=== PATIENT | female | born 1930 | race Caucasian/White ===

== ENCOUNTER 2017-04-18 15:50 | Inpatient (IN) | payer OTHER, MEDICAID ==
[~2017-04-18] VITALS: Ht 160 cm; Wt 77.2 kg
[~2017-04-18 15:50] MED LIST: ASPI81CH43 PO; CARV3.1240 PO; FLUT250M9 PO; FUR20T PO; ISO60SRT PO; METF-371 PO; POTA10TA51 PO; RAM10T PO; ROPI1TAB2 PO; SIMV-8 PO; THEO1CAP3 PO; TRAM50TA2 PO
[2017-04-18] MEDS ORDERED: SODIUM CHLORIDE 0.9% 1,000 ML IV ONE ×2 (16:56→17:09)
[2017-04-18 17:22] LABS: Urine Bilirubin Negative (Negative); Urine Blood Negative /uL (Negative); Urine Color Yellow (Yellow); Urine Glucose Normal (Normal); Urine Ketone Negative (Negative); Urine Nitrite Negative (Negative); Urine RBC <1 /hpf (0 - 4); Urine Squamous Epithelial Cell FEW /hpf (<5); Urine Urobilinogen Normal (Negative)
[2017-04-18 17:26] LABS: Basophils # (auto) 0.1 uL; Basophils % (auto) 0.8 % (0.0-2.0); Eosinophils # (auto) 0.3 uL; Hematocrit 27.4 % (36.0-46.0); Hemoglobin 8.9 g/dL (12.2-16.2); Lymphocytes # (auto) 0.8 uL; Lymphocytes % (auto) 12.2 % (10.0-50.0); Mean Corpuscular Hemoglobin 28.1 pg (28.0-32.0); Mean Corpuscular Hgb Conc. 32.4 g/dL (32.0-36.0); Mean Corpuscular Volume 86.8 fL (80.0-100.0); Mean Platelet Volume 7.3 fL (6.9-10.8); Monocytes # (auto) 0.9 uL; Monocytes % (auto) 13.4 % (0.0-12.0); Neutrophils # (auto) 4.8 uL; Neutrophils % (auto) 69.6 % (37.0-80.0); Nucleated Red Blood Cells % 0.1 %; Platelet Count (auto) 200 10^3/uL (140-450); White Blood Cell 6.8 10^3/uL (4.4-10.8)
[2017-04-18 17:43] LABS: Albumin 2.6 g/dL (3.4-5.0); Anion Gap 3 (5-15); Blood Urea Nitrogen 24 mg/dL (7-18); Calcium 9.6 mg/dL (8.5-10.1); Carbon Dioxide 35 mmol/L (21-32); Chloride 100 mmol/L (98-107); Glucose 87 mg/dL (74-106); Magnesium 2.2 mg/dL (1.6-2.6); Potassium 4.2 mmol/L (3.5-5.1); Sodium 138 mmol/L (136-145)
[2017-04-18 17:45] LABS: Aspartate Aminotransferase 24 U/L (15-37); BUN/Creatinine Ratio 18.2; GFR African American 49 mL/min; GFR Non-African American 41 mL/min
[2017-04-18 17:50] LABS: Alkaline Phosphatase 50 U/L (45-117); B-Type Natriuretic Peptide 90.77 pg/mL (0-100); Bilirubin, Total 0.4 mg/dL (0.2-1.0); Total Protein 6.7 g/dL (6.4-8.2)
[2017-04-18 18:03] LABS: Partial Thromboplastin Time 28.2 sec (22.64-33.71); Prothrombin Time 10.9 sec (9.37-12.3)
[2017-04-18 18:05] LABS: Temperature: 23.1 C (20.0-25.0)
[2017-04-18] MEDS ORDERED: PROMETHAZINE HCL 25 MG/ML 1ML IV PRN (19:45)
[2017-04-18] MEDS ORDERED: traMADol HCL 50 MG TAB PO PRN (19:45)
[2017-04-18] MEDS ORDERED: TEMAZEPAM 15 MG CAP PO PRN (19:45)
[2017-04-18] MEDS ORDERED: NITROGLYCERIN 0.4 MG SL TAB SL PRN (19:45)
[2017-04-18] MEDS ORDERED: MORPHINE SULF INJ 2 MG/ML SYRINGE 1ML IV PRN ×2 (19:45)
[2017-04-18] MEDS ORDERED: ALBUTEROL SULF 2.5 MG/0.5ML(0.5%) NEB SOLN NEB PRN (19:45)
[2017-04-18] MEDS ORDERED: ACETAMINOPHEN 500 MG TAB PO PRN (19:45)
[2017-04-18] MEDS ORDERED: LACTULOSE 20Gm/30ML SOLN PO PRN (19:45)
[2017-04-18] MEDS ORDERED: LORazepam 0.5 MG TAB PO PRN (19:45)
[2017-04-18] MEDS ORDERED: HYDROcodone-ACET 5/325MG TAB PO PRN (19:45)
[2017-04-18] MEDS: ENOXAPARIN SOD 40 MG/0.4 ML SYRINGE SC SCH (20:03)
[2017-04-18] MEDS: ASPirin 81 mg TAB PO SCH (20:04)
[2017-04-18 21:08] VITALS: BP 165/66
[2017-04-18] MEDS: THEOPHYLLINE 300 MG PO SCH (22:00)
[2017-04-18] MEDS: ROPINIROLE HYDROCHLORIDE 1 MG PO SCH (22:00)
[2017-04-18] MEDS: SODIUM CHLOR 0.9% PF (SALINE LOCK) 10ML VIAL IV SCH (22:00)
[2017-04-18 23:00] VITALS: BP 150/56
[2017-04-18 23:49] VITALS: BP 150/56
[2017-04-18] MEDS: ATORVASTATIN 20 MG TAB PO SCH (23:49)
[2017-04-18] MEDS: DOXYCYCLINE HYC 100MG/250ML 250 ML IV SCH (23:49)
[2017-04-18] MEDS: CARVEDILOL 3.125 MG TAB PO SCH (23:49)
[2017-04-19] MEDS: SULFAMETHOX W/TRIMETH(800/160MG) DS TAB PO SCH ×3 (00:03→22:06)
[2017-04-19] MEDS: RAMIPRIL 10 MG CAP PO SCH ×3 (00:11→22:06)
[2017-04-19] MEDS: ISOSORBIDE MONONITRATE 60 MG TAB PO SCH ×2 (00:11→10:15)
[2017-04-19] MEDS: methylPREDNISolone SOD SUCC 40 MG/ML VL IV SCH ×4 (00:12→18:50)
[2017-04-19] MEDS: ALBUTEROL SULF 2.5 MG/0.5ML(0.5%) NEB SOLN NEB SCH ×5 (01:12→23:53)
[2017-04-19] MEDS: IPRATROPIUM BROM 0.5 MG/2.5ML INH SOL NEB SCH ×5 (01:12→23:53)
[2017-04-19] MEDS: BUDESONIDE (INHALATION) 0.5 MG/2 ML NEB NEB SCH ×3 (01:12→18:20)
[2017-04-19 05:30] VITALS: BP 129/52
[2017-04-19] MEDS: SODIUM CHLOR 0.9% PF (SALINE LOCK) 10ML VIAL IV SCH ×3 (06:00→21:47)
[2017-04-19] MEDS: ROPINIROLE HYDROCHLORIDE 1 MG PO SCH ×3 (06:00→22:15)
[2017-04-19] MEDS: DOXYCYCLINE HYC 100MG/250ML 250 ML IV SCH ×2 (07:44→21:47)
[2017-04-19 08:00] VITALS: BP 129/48
[2017-04-19] MEDS: POTASSIUM CHL 10 Meq TABLET PO SCH (10:12)
[2017-04-19] MEDS: CARVEDILOL 3.125 MG TAB PO SCH ×2 (10:13→21:59)
[2017-04-19] MEDS: FUROSEMIDE 20 MG TAB PO SCH (10:14)
[2017-04-19] MEDS: ASPirin 81 mg TAB PO SCH (10:15)
[2017-04-19] MEDS: THEOPHYLLINE 300 MG PO SCH ×2 (10:18→22:15)
[2017-04-19 13:00] VITALS: BP 141/52
[2017-04-19 16:56] VITALS: BP 141/49
[2017-04-19] MEDS: ENOXAPARIN SOD 40 MG/0.4 ML SYRINGE SC SCH (21:47)
[2017-04-19 22:00] VITALS: BP 138/74
[2017-04-19] MEDS: ATORVASTATIN 20 MG TAB PO SCH (22:06)
[2017-04-20] MEDS: methylPREDNISolone SOD SUCC 40 MG/ML VL IV SCH ×4 (00:45→18:46)
[2017-04-20 05:00] VITALS: BP 119/51
[2017-04-20] MEDS: ROPINIROLE HYDROCHLORIDE 1 MG PO SCH ×3 (06:00→21:50)
[2017-04-20] MEDS: SODIUM CHLOR 0.9% PF (SALINE LOCK) 10ML VIAL IV SCH ×3 (06:12→21:51)
[2017-04-20] MEDS: IPRATROPIUM BROM 0.5 MG/2.5ML INH SOL NEB SCH ×3 (06:39→19:48)
[2017-04-20] MEDS: ALBUTEROL SULF 2.5 MG/0.5ML(0.5%) NEB SOLN NEB SCH ×3 (06:39→19:48)
[2017-04-20] MEDS: BUDESONIDE (INHALATION) 0.5 MG/2 ML NEB NEB SCH ×2 (06:39→19:48)
[2017-04-20 08:00] VITALS: BP 135/55
[2017-04-20] MEDS: DOXYCYCLINE HYC 100MG/250ML 250 ML IV SCH ×2 (08:41→23:08)
[2017-04-20] MEDS: ASPirin 81 mg TAB PO SCH (10:00)
[2017-04-20] MEDS: CARVEDILOL 3.125 MG TAB PO SCH ×2 (10:00→21:49)
[2017-04-20] MEDS: POTASSIUM CHL 10 Meq TABLET PO SCH (11:02)
[2017-04-20] MEDS: SULFAMETHOX W/TRIMETH(800/160MG) DS TAB PO SCH ×2 (11:03→21:49)
[2017-04-20] MEDS: ISOSORBIDE MONONITRATE 60 MG TAB PO SCH (11:04)
[2017-04-20] MEDS: RAMIPRIL 10 MG CAP PO SCH ×2 (11:04→21:48)
[2017-04-20] MEDS: FUROSEMIDE 20 MG TAB PO SCH (11:05)
[2017-04-20 12:00] VITALS: BP 139/44
[2017-04-20] MEDS: THEOPHYLLINE 300 MG PO SCH ×2 (16:11→21:51)
[2017-04-20 17:00] VITALS: BP 132/59
[2017-04-20] MEDS: ENOXAPARIN SOD 40 MG/0.4 ML SYRINGE SC SCH (21:47)
[2017-04-20] MEDS: ATORVASTATIN 20 MG TAB PO SCH (21:48)
[2017-04-20 22:00] VITALS: BP 129/45
[2017-04-21] MEDS: methylPREDNISolone SOD SUCC 40 MG/ML VL IV SCH ×3 (00:05→13:48)
[2017-04-21] MEDS: IPRATROPIUM BROM 0.5 MG/2.5ML INH SOL NEB SCH ×4 (00:43→19:12)
[2017-04-21] MEDS: ALBUTEROL SULF 2.5 MG/0.5ML(0.5%) NEB SOLN NEB SCH ×4 (00:43→19:12)
[2017-04-21 05:00] VITALS: BP 126/56
[2017-04-21] MEDS: SODIUM CHLOR 0.9% PF (SALINE LOCK) 10ML VIAL IV SCH ×3 (05:07→22:14)
[2017-04-21] MEDS: ROPINIROLE HYDROCHLORIDE 1 MG PO SCH ×3 (06:24→21:34)
[2017-04-21] MEDS: BUDESONIDE (INHALATION) 0.5 MG/2 ML NEB NEB SCH ×2 (07:48→19:12)
[2017-04-21 09:00] VITALS: BP 144/91
[2017-04-21] MEDS: DOXYCYCLINE HYC 100MG/250ML 250 ML IV SCH (09:14)
[2017-04-21] MEDS: ASPirin 81 mg TAB PO SCH (12:17)
[2017-04-21] MEDS: THEOPHYLLINE 300 MG PO SCH ×2 (12:18→21:32)
[2017-04-21] MEDS: SULFAMETHOX W/TRIMETH(800/160MG) DS TAB PO SCH (12:18)
[2017-04-21] MEDS: RAMIPRIL 10 MG CAP PO SCH ×2 (12:18→21:33)
[2017-04-21] MEDS: POTASSIUM CHL 10 Meq TABLET PO SCH (12:19)
[2017-04-21] MEDS: ISOSORBIDE MONONITRATE 60 MG TAB PO SCH (12:19)
[2017-04-21] MEDS: CARVEDILOL 3.125 MG TAB PO SCH (12:19)
[2017-04-21] MEDS: FUROSEMIDE 20 MG TAB PO SCH (12:20)
[2017-04-21 13:00] VITALS: BP 132/53
[2017-04-21 16:49] VITALS: BP 150/67
[2017-04-21] MEDS: ENOXAPARIN SOD 40 MG/0.4 ML SYRINGE SC SCH (20:11)
[2017-04-21] MEDS: ATORVASTATIN 20 MG TAB PO SCH (21:32)
[2017-04-21 22:00] VITALS: BP 123/57
[2017-04-21] MEDS ORDERED: DOXYCYCLINE 100 MG TAB/CAP PO SCH (22:00)
[2017-04-22] MEDS: IPRATROPIUM BROM 0.5 MG/2.5ML INH SOL NEB SCH ×3 (00:06→12:22)
[2017-04-22] MEDS: ALBUTEROL SULF 2.5 MG/0.5ML(0.5%) NEB SOLN NEB SCH ×3 (00:07→12:22)
[2017-04-22 01:44] VITALS: BP 123/57
[2017-04-22 05:00] VITALS: BP 137/48
[2017-04-22] MEDS: ROPINIROLE HYDROCHLORIDE 1 MG PO SCH (05:26)
[2017-04-22] MEDS: SODIUM CHLOR 0.9% PF (SALINE LOCK) 10ML VIAL IV SCH (05:26)
[2017-04-22 07:25] LABS: Basophils # (auto) 0 uL; Basophils % (auto) 0.1 % (0.0-2.0); Eosinophils # (auto) 0 uL; Hematocrit 28.3 % (36.0-46.0); Hemoglobin 9.1 g/dL (12.2-16.2); Lymphocytes # (auto) 1.2 uL; Lymphocytes % (auto) 11.1 % (10.0-50.0); Mean Corpuscular Hemoglobin 27.4 pg (28.0-32.0); Mean Corpuscular Volume 85.4 fL (80.0-100.0); Mean Platelet Volume 7.4 fL (6.9-10.8); Monocytes # (auto) 0.9 uL; Monocytes % (auto) 8.5 % (0.0-12.0); Neutrophils # (auto) 8.8 uL; Neutrophils % (auto) 80.3 % (37.0-80.0); Nucleated Red Blood Cells % 0.1 %; Platelet Count (auto) 265 10^3/uL (140-450); Red Cell Distribution Width 17.6 % (11.8-14.3)
[2017-04-22 07:34] LABS: BUN/Creatinine Ratio 30.1; Calcium 9.2 mg/dL (8.5-10.1)
[2017-04-22] MEDS: BUDESONIDE (INHALATION) 0.5 MG/2 ML NEB NEB SCH (08:10)
[2017-04-22 09:00] VITALS: BP 146/66
[2017-04-22] MEDS ORDERED: predniSONE 20 MG TAB PO SCH (10:00)
[2017-04-22] MEDS: THEOPHYLLINE 300 MG PO SCH (10:32)
[2017-04-22] MEDS: ASPirin 81 mg TAB PO SCH (10:32)
[2017-04-22] MEDS: RAMIPRIL 10 MG CAP PO SCH (10:33)
[2017-04-22] MEDS: ISOSORBIDE MONONITRATE 60 MG TAB PO SCH (10:33)
[2017-04-22 11:01] VITALS: BP 137/48
== END 2017-04-22 13:00 | disposition home or self-care (01) | DRG 682 ==
LOC: EDBD 15:50 → ER 15:52 → TELE 15:53 → TELE-WESTW 21:45
PROVIDERS: ADMIT Internal Medicine; ATTEND Internal Medicine
DX: N17.9 Acute kidney failure, unspecified (principal); J96.20 Acute and chronic respiratory failure, unspecified whether with hypoxia or hypercapnia; E44.0 Moderate protein-calorie malnutrition; I50.32 Chronic diastolic (congestive) heart failure; I13.0 Hypertensive heart and chronic kidney disease with heart failure and stage 1 through stage 4 chronic kidney disease, or unspecified chronic kidney disease; J44.1 Chronic obstructive pulmonary disease with (acute) exacerbation; L03.115 Cellulitis of right lower limb; L03.116 Cellulitis of left lower limb; R44.3 Hallucinations, unspecified; E11.21 Type 2 diabetes mellitus with diabetic nephropathy; N18.3 Chronic kidney disease, stage 3 (moderate); D63.8 Anemia in other chronic diseases classified elsewhere; E11.22 Type 2 diabetes mellitus with diabetic chronic kidney disease; E78.5 Hyperlipidemia, unspecified; I25.10 Atherosclerotic heart disease of native coronary artery without angina pectoris; E66.9 Obesity, unspecified; I87.2 Venous insufficiency (chronic) (peripheral); R09.89 Other specified symptoms and signs involving the circulatory and respiratory systems; R79.89 Other specified abnormal findings of blood chemistry; T38.0X5A Adverse effect of glucocorticoids and synthetic analogues, initial encounter; I70.0 Atherosclerosis of aorta; M19.90 Unspecified osteoarthritis, unspecified site; Z83.3 Family history of diabetes mellitus; Z90.49 Acquired absence of other specified parts of digestive tract; Z68.30 Body mass index [BMI] 30.0-30.9, adult; Z82.49 Family history of ischemic heart disease and other diseases of the circulatory system; Z88.8 Allergy status to other drugs, medicaments and biological substances; Z99.81 Dependence on supplemental oxygen
CPT/HCPCS: 36415; 71020; 80048; 80053; 81001; 83735; 83880; 84443; 84484; 85025; 85610; 85730; 87400; 93005; 93970; 94640; 94761; 96360; J3490

== ENCOUNTER 2017-05-28 07:29 | Inpatient (IN) | payer OTHER, MEDICAID ==
[~2017-05-28] VITALS: Ht 162.6 cm; Wt 74.6 kg
[~2017-05-28 07:29] MED LIST changes: -CARV3.1240 PO; -FUR20T PO; -POTA10TA51 PO
[2017-05-28] MEDS ORDERED: SODIUM CHLORIDE 0.9% 1,000 ML IV ONE (09:30)
[2017-05-28] MEDS ORDERED: cefTRIAXone 1GM/10ml IVPUSH 10 ML IV ONE ×2 (09:30→09:47)
[2017-05-28 10:23] LABS: Urine Bacteria NONE SEEN /hpf (None Seen); Urine Blood Negative /uL (Negative); Urine Mucus FEW (None Seen); Urine Specific Gravity 1.011 (1.001-1.035); Urine WBC 1 /hpf (0 - 5)
[2017-05-28 10:29] LABS: Basophils # (auto) 0.1 uL; Basophils % (auto) 0.8 % (0.0-2.0); Eosinophils # (auto) 0.2 uL; Eosinophils % (auto) 2.2 % (0.0-7.0); Hematocrit 30.5 % (36.0-46.0); Lymphocytes # (auto) 1.6 uL; Lymphocytes % (auto) 19.7 % (10.0-50.0); Mean Corpuscular Hemoglobin 28.5 pg (28.0-32.0); Mean Corpuscular Hgb Conc. 32.9 g/dL (32.0-36.0); Mean Corpuscular Volume 86.5 fL (80.0-100.0); Monocytes # (auto) 0.6 uL; Monocytes % (auto) 7.2 % (0.0-12.0); Neutrophils # (auto) 5.7 uL; Neutrophils % (auto) 70.1 % (37.0-80.0); Platelet Count (auto) 248 10^3/uL (140-450); Red Blood Cells 3.52 10^6/uL (4.0-5.20); Red Cell Distribution Width 18.2 % (11.8-14.3); White Blood Cell 8.1 10^3/uL (4.4-10.8)
[2017-05-28] MEDS ORDERED: FUROSEMIDE 40 MG/4 ML VIAL ONE (10:56)
[2017-05-28] MEDS ORDERED: SPIRONOLACTONE 25 MG TAB ONE (10:56)
[2017-05-28] MEDS ORDERED: SPIRONOLACTONE 25 MG TAB PO ONE (11:00)
[2017-05-28] MEDS ORDERED: FUROSEMIDE 40 MG/4 ML VIAL IV ONE (11:00)
[2017-05-28 11:01] LABS: Potassium 3.9 mmol/L (3.5-5.1)
[2017-05-28 11:02] LABS: Albumin 3.4 g/dL (3.4-5.0); BUN/Creatinine Ratio 21.4; Bilirubin, Total 0.3 mg/dL (0.2-1.0); Calcium 9.2 mg/dL (8.5-10.1); Magnesium 2.2 mg/dL (1.6-2.6); Total Protein 6.8 g/dL (6.4-8.2)
[2017-05-28] MEDS ORDERED: LORazepam 0.5 MG TAB PO PRN (12:45)
[2017-05-28] MEDS ORDERED: MORPHINE SULF INJ 2 MG/ML SYRINGE 1ML IV PRN (12:45)
[2017-05-28] MEDS ORDERED: HYDROcodone-ACET 5/325MG TAB PO PRN (12:45)
[2017-05-28] MEDS ORDERED: ACETAMINOPHEN 500 MG TAB PO PRN (12:45)
[2017-05-28] MEDS ORDERED: TEMAZEPAM 15 MG CAP PO PRN (12:45)
[2017-05-28] MEDS ORDERED: ALBUTEROL SULF 2.5 MG/0.5ML(0.5%) NEB SOLN NEB PRN (12:45)
[2017-05-28] MEDS ORDERED: PROMETHAZINE HCL 25 MG/ML 1ML IV PRN (12:45)
[2017-05-28] MEDS ORDERED: NITROGLYCERIN 0.4 MG SL TAB SL PRN (12:45)
[2017-05-28] MEDS ORDERED: LACTULOSE 20Gm/30ML SOLN PO PRN (12:45)
[2017-05-28] MEDS ORDERED: OSELTAMIVIR 75 MG CAP PO ONE (13:00)
[2017-05-28] MEDS ORDERED: LEVOFLOXACIN 500MG 100 ML IV ONE (13:15)
[2017-05-28 13:52] VITALS: BP 104/54
[2017-05-28] MEDS: CLINDAMYCIN 600MG IV 50 ML IV SCH ×2 (14:00→22:12)
[2017-05-28] MEDS: ALBUTEROL SULF 2.5 MG/0.5ML(0.5%) NEB SOLN NEB SCH (18:18)
[2017-05-28] MEDS: IPRATROPIUM BROM 0.5 MG/2.5ML INH SOL NEB SCH (18:19)
[2017-05-28 21:28] VITALS: BP 140/54
[2017-05-28] MEDS ORDERED: OSELTAMIVIR 75 MG CAP PO SCH (22:00)
[2017-05-28] MEDS: OSELTAMIVIR 30 MG CAP PO SCH (22:00)
[2017-05-28] MEDS: methylPREDNISolone SOD SUCC 40 MG/ML VL IV SCH (22:02)
[2017-05-28] MEDS: MORPHINE SULF INJ 2 MG/ML SYRINGE 1ML IV PRN (22:03)
[2017-05-28] MEDS: CARVEDILOL 3.125 MG TAB PO SCH (22:24)
[2017-05-29] MEDS: ALBUTEROL SULF 2.5 MG/0.5ML(0.5%) NEB SOLN NEB SCH ×4 (00:25→18:48)
[2017-05-29] MEDS: IPRATROPIUM BROM 0.5 MG/2.5ML INH SOL NEB SCH ×4 (00:25→18:48)
[2017-05-29] MEDS: MORPHINE SULF INJ 2 MG/ML SYRINGE 1ML IV PRN (05:21)
[2017-05-29 05:22] VITALS: BP 145/52
[2017-05-29] MEDS: CLINDAMYCIN 600MG IV 50 ML IV SCH ×2 (05:28→15:03)
[2017-05-29] MEDS: methylPREDNISolone SOD SUCC 40 MG/ML VL IV SCH ×4 (05:31→18:51)
[2017-05-29 06:06] LABS: Basophils # (auto) 0 uL; Basophils % (auto) 0.6 % (0.0-2.0); Eosinophils # (auto) 0 uL; Eosinophils % (auto) 0.1 % (0.0-7.0); Hematocrit 32.1 % (36.0-46.0); Hemoglobin 10.7 g/dL (12.2-16.2); Lymphocytes # (auto) 0.5 uL; Lymphocytes % (auto) 8.1 % (10.0-50.0); Mean Corpuscular Hemoglobin 28.7 pg (28.0-32.0); Mean Corpuscular Hgb Conc. 33.2 g/dL (32.0-36.0); Mean Corpuscular Volume 86.5 fL (80.0-100.0); Monocytes # (auto) 0.1 uL; Monocytes % (auto) 1.1 % (0.0-12.0); Neutrophils # (auto) 5.3 uL; Neutrophils % (auto) 90.1 % (37.0-80.0); Platelet Count (auto) 245 10^3/uL (140-450); Red Blood Cells 3.72 10^6/uL (4.0-5.20); Red Cell Distribution Width 18.6 % (11.8-14.3); White Blood Cell 5.9 10^3/uL (4.4-10.8)
[2017-05-29 06:13] LABS: Potassium 4.4 mmol/L (3.5-5.1)
[2017-05-29 06:20] LABS: Albumin 3.3 g/dL (3.4-5.0); BUN/Creatinine Ratio 20.5; Calcium 9.4 mg/dL (8.5-10.1)
[2017-05-29 06:37] LABS: Bilirubin, Total 0.3 mg/dL (0.2-1.0); Total Protein 6.8 g/dL (6.4-8.2)
[2017-05-29 09:00] VITALS: BP 142/46
[2017-05-29] MEDS ORDERED: LEVOFLOXACIN 250MG 50 ML IV SCH (10:00)
[2017-05-29] MEDS: OSELTAMIVIR 30 MG CAP PO SCH (10:00)
[2017-05-29] MEDS ORDERED: ENOXAPARIN SOD 40 MG/0.4 ML SYRINGE SC SCH (10:00)
[2017-05-29] MEDS: FUROSEMIDE 40 MG/4 ML VIAL IV SCH (11:00)
[2017-05-29] MEDS: ENOXAPARIN SOD 30 MG/0.3 ML SYRINGE SC SCH (11:01)
[2017-05-29] MEDS: NITROGLYCERIN 0.2MG/HR TOPICAL PATCH TD SCH (11:02)
[2017-05-29] MEDS: CARVEDILOL 3.125 MG TAB PO SCH (11:03)
[2017-05-29] MEDS: POTASSIUM CHL 20 Meq TABLET PO SCH (11:03)
[2017-05-29] MEDS: ASPirin 81 mg TAB PO SCH (11:04)
[2017-05-29] MEDS: PANTOPRAZOLE 40 MG TAB PO SCH (11:04)
[2017-05-29] MEDS: ENALAPRIL MALEATE 2.5 MG TAB PO SCH (11:04)
[2017-05-29 13:00] VITALS: BP 148/52
[2017-05-29 17:25] VITALS: BP 141/43
[2017-05-29] MEDS ORDERED: ALLO300T2 PO (18:25)
[2017-05-29] MEDS ORDERED: FERR-20 PO (18:25)
[2017-05-29] MEDS ORDERED: CARV3.1240 PO (18:25)
[2017-05-29] MEDS ORDERED: FURO20TA3 PO (18:25)
[2017-05-29] MEDS ORDERED: GLIM1TAB2 PO (18:25)
[2017-05-29 22:53] VITALS: BP 138/59
[2017-05-30] MEDS: DOXYCYCLINE 100 MG TAB/CAP PO SCH ×2 (00:26→10:45)
[2017-05-30] MEDS: CARVEDILOL 3.125 MG TAB PO SCH ×2 (00:26→10:45)
[2017-05-30] MEDS: methylPREDNISolone SOD SUCC 40 MG/ML VL IV SCH ×3 (00:27→12:18)
[2017-05-30] MEDS: IPRATROPIUM BROM 0.5 MG/2.5ML INH SOL NEB SCH ×3 (00:28→11:50)
[2017-05-30] MEDS: ALBUTEROL SULF 2.5 MG/0.5ML(0.5%) NEB SOLN NEB SCH ×3 (00:28→11:50)
[2017-05-30] MEDS: MORPHINE SULF INJ 2 MG/ML SYRINGE 1ML IV PRN (04:08)
[2017-05-30 05:46] VITALS: BP 145/73
[2017-05-30] MEDS ORDERED: cefTRIAXone 1GM/10ml IVPUSH 10 ML IV SCH (09:00)
[2017-05-30 09:09] VITALS: BP 153/45
[2017-05-30] MEDS: ASPirin 81 mg TAB PO SCH (10:00)
[2017-05-30] MEDS: ENALAPRIL MALEATE 2.5 MG TAB PO SCH (10:44)
[2017-05-30] MEDS: PANTOPRAZOLE 40 MG TAB PO SCH (10:45)
[2017-05-30] MEDS: FUROSEMIDE 40 MG/4 ML VIAL IV SCH (10:46)
[2017-05-30] MEDS: POTASSIUM CHL 20 Meq TABLET PO SCH (10:46)
[2017-05-30] MEDS: ENOXAPARIN SOD 30 MG/0.3 ML SYRINGE SC SCH (10:47)
[2017-05-30] MEDS: NITROGLYCERIN 0.2MG/HR TOPICAL PATCH TD SCH (10:47)
[2017-05-30 13:00] VITALS: BP 155/41
[2017-05-30] MEDS ORDERED: DOX100T PO (14:06)
[2017-05-30] MEDS ORDERED: PRE5T PO (14:06)
[2017-05-30] MEDS ORDERED: ALB5IS NEB (14:06)
[2017-05-30 14:39] VITALS: BP 153/45
== END 2017-05-30 16:55 | disposition home or self-care (01) | DRG 291 ==
LOC: ER 07:29 → EDBD 07:29 → TELE 07:30 → TELE-WESTW 18:41
PROVIDERS: ADMIT Internal Medicine; ATTEND Internal Medicine
DX: I13.0 Hypertensive heart and chronic kidney disease with heart failure and stage 1 through stage 4 chronic kidney disease, or unspecified chronic kidney disease (principal); J96.21 Acute and chronic respiratory failure with hypoxia; E11.21 Type 2 diabetes mellitus with diabetic nephropathy; I50.33 Acute on chronic diastolic (congestive) heart failure; J44.1 Chronic obstructive pulmonary disease with (acute) exacerbation; L03.115 Cellulitis of right lower limb; L03.116 Cellulitis of left lower limb; K59.00 Constipation, unspecified; F41.9 Anxiety disorder, unspecified; N18.3 Chronic kidney disease, stage 3 (moderate); G47.00 Insomnia, unspecified; E11.22 Type 2 diabetes mellitus with diabetic chronic kidney disease; D63.8 Anemia in other chronic diseases classified elsewhere; E78.5 Hyperlipidemia, unspecified; I25.10 Atherosclerotic heart disease of native coronary artery without angina pectoris; M19.90 Unspecified osteoarthritis, unspecified site; Z82.49 Family history of ischemic heart disease and other diseases of the circulatory system; Z83.3 Family history of diabetes mellitus; Z90.49 Acquired absence of other specified parts of digestive tract; Z88.6 Allergy status to analgesic agent; Z79.82 Long term (current) use of aspirin; Z79.899 Other long term (current) drug therapy
CPT/HCPCS: 36415; 71045; 71046; 80053; 81001; 82550; 82962; 83735; 83880; 84484; 85025; 85379; 85652; 86141; 87081; 87400; 93005; 93306; 93971; 94640; 94761; 96374; 96375; G9035; J1956; J3490

== ENCOUNTER 2017-07-08 16:45 | Inpatient (IN) | payer OTHER, MEDICAID ==
[~2017-07-08] VITALS: Ht 160 cm; Wt 75.8 kg
[~2017-07-08 16:45] MED LIST changes: +ALB5IS NEB; +ALLO300T2 PO; +CARV3.1240 PO; +DOX100T PO; +FERR-20 PO; +FURO20TA3 PO; +GLIM1TAB2 PO; +PRE5T PO
[2017-07-08] MEDS ORDERED: DEXTROSE (50%) 50ML SYRG IV ONE ×3 (17:15→22:00)
[2017-07-08 18:03] LABS: Eosinophils # (auto) 0.1 uL; Hematocrit 19.9 % (36.0-46.0); Lymphocytes # (auto) 0.5 uL; Mean Corpuscular Hemoglobin 28.4 pg (28.0-32.0); Monocytes # (auto) 0.3 uL; Neutrophils # (auto) 4.5 uL; White Blood Cell 5.4 10^3/uL (4.4-10.8)
[2017-07-08 18:11] LABS: Basophils % (auto) 0.5 % (0.0-2.0); Eosinophils % (auto) 1.6 % (0.0-7.0); Lymphocytes % (auto) 8.9 % (10.0-50.0); Monocytes % (auto) 4.8 % (0.0-12.0); Neutrophils % (auto) 84.2 % (37.0-80.0)
[2017-07-08 18:12] LABS: Basophils # (auto) 0 uL; Red Blood Cells 2.31 10^6/uL (4.0-5.20)
[2017-07-08 18:14] LABS: Mean Corpuscular Hgb Conc. 32.9 g/dL (32.0-36.0); Mean Corpuscular Volume 86.3 fL (80.0-100.0); Platelet Count (auto) 184 10^3/uL (140-450); Red Cell Distribution Width 18.5 % (11.8-14.3)
[2017-07-08 18:16] LABS: Hemoglobin 6.6 g/dL (12.2-16.2)
[2017-07-08 18:28] LABS: Albumin 2.7 g/dL (3.4-5.0); BUN/Creatinine Ratio 38.6; Calcium 9.4 mg/dL (8.5-10.1); Magnesium 2.1 mg/dL (1.6-2.6); Potassium 4.1 mmol/L (3.5-5.1)
[2017-07-08 18:43] LABS: Bilirubin, Total 0.3 mg/dL (0.2-1.0); Total Protein 5.8 g/dL (6.4-8.2)
[2017-07-08] MEDS ORDERED: DEXTROSE 50% SYRINGE 50 ML IV ONE ×2 (19:04→19:11)
[2017-07-08] MEDS ORDERED: NTG 0.1MG/HR TOPICAL PATCH TD ONE (19:45)
[2017-07-08] MEDS ORDERED: MORPHINE SULFATE 4 MG/ML SYR/VIAL IV ONE (19:45)
[2017-07-08] MEDS ORDERED: ONDANSETRON HCL 4 MG/2 ML VIAL IV ONE (19:45)
[2017-07-08] MEDS ORDERED: DEXTROSE (25%) 10 ML SYRG IV ONE (19:45)
[2017-07-08] MEDS ORDERED: ASPirin 81 mg TAB PO ONE (19:45)
[2017-07-08] MEDS ORDERED: DEXTROSE 10% 1,000 ML IV ONE ×2 (21:41→22:00)
[2017-07-08] MEDS ORDERED: VANCOMYCIN 1GM/250ML 250 ML IV ONE (23:15)
[2017-07-08] MEDS ORDERED: cefTRIAXone 1GM/10ml IVPUSH 10 ML IV ONE (23:15)
[2017-07-08] MEDS: DEXTROSE 10% 1,000 ML IV SCH (23:40)
[2017-07-08] MEDS ORDERED: DEXTROSE 10% 1,000 ML IV SCH (23:45)
[2017-07-09] VITALS (7 sets, daily range): BP systolic 105–148; BP diastolic 39–59
[2017-07-09] MEDS ORDERED: MORPHINE SULFATE 4 MG/ML SYR/VIAL IV PRN (01:00)
[2017-07-09] MEDS ORDERED: ALBUTEROL SULF 2.5 MG/0.5ML(0.5%) NEB SOLN NEB PRN (01:00)
[2017-07-09] MEDS ORDERED: DEXTROSE (50%) 50ML SYRG IV PRN (01:00)
[2017-07-09] MEDS ORDERED: NITROGLYCERIN 0.4 MG SL TAB SL PRN (01:00)
[2017-07-09] MEDS ORDERED: ACETAMINOPHEN 325 MG TAB PO PRN (01:00)
[2017-07-09] MEDS ORDERED: ONDANSETRON HCL 4 MG/2 ML VIAL IV PRN (01:00)
[2017-07-09] MEDS ORDERED: GLUCAGON HYDROCHLORIDE (RDNA) 1 MG VIAL IV ONE (01:30)
[2017-07-09] MEDS ORDERED: GLUCAGON HYDROCHLORIDE (RDNA) 1 MG VIAL ONE (01:40)
[2017-07-09] MEDS: ACCU-CHEK COMFORT CURVE STRIP VI SCH ×5 (04:00→20:00)
[2017-07-09] MEDS: InsuLIN REG 1unit/0.01ml Soln (100units/ml) SC SCH ×5 (05:15→20:00)
[2017-07-09] MEDS ORDERED: FUROSEMIDE 20 MG TAB PO SCH (06:00)
[2017-07-09] MEDS: CLINDAMYCIN 600MG IV 50 ML IV SCH ×3 (06:00→22:04)
[2017-07-09 08:32] LABS: Hematocrit 25.3 % (36.0-46.0); Hemoglobin 8.5 g/dL (12.2-16.2)
[2017-07-09 09:53] LABS: Urine Bacteria NONE SEEN /hpf (None Seen); Urine Blood Negative /uL (Negative); Urine Mucus FEW (None Seen); Urine Specific Gravity 1.007 (1.001-1.035); Urine WBC 1 /hpf (0 - 5)
[2017-07-09] MEDS ORDERED: ASPirin 81 mg TAB PO SCH (10:00)
[2017-07-09] MEDS ORDERED: CARVEDILOL 3.125 MG TAB PO SCH (10:00)
[2017-07-09] MEDS ORDERED: RAMIPRIL 10 MG CAP PO SCH (10:00)
[2017-07-09] MEDS ORDERED: predniSONE 5 MG TAB PO SCH (10:00)
[2017-07-09 10:01] LABS: Protein, Urine 8.1 mg/dL (0.0-11.9)
[2017-07-09] MEDS: PANTOPRAZOLE 40 MG TAB PO SCH (10:35)
[2017-07-09] MEDS: ENOXAPARIN SOD 30 MG/0.3 ML SYRINGE SC SCH (10:35)
[2017-07-09] MEDS: ISOSORBIDE MONONITRATE 60 MG TAB PO SCH (10:35)
[2017-07-09] MEDS ORDERED: LEVALBUTEROL HYDROCHLORIDE 0.63 MG/3 ML NEB SOLN NEB PRN (11:30)
[2017-07-09] MEDS ORDERED: LEVALBUTEROL INH PRN (12:00)
[2017-07-09] MEDS: DEXTROSE 10% 1,000 ML IV SCH (14:25)
[2017-07-09] MEDS: HYDROcodone-ACET 5/325MG TAB PO PRN (15:58)
[2017-07-09 19:55] LABS: % Iron Saturation 10.7 % (15-50)
[2017-07-09] MEDS: IPRATROPIUM BROM 0.5 MG/2.5ML INH SOL NEB PRN (20:25)
[2017-07-09] MEDS: TEMAZEPAM 15 MG CAP PO PRN (20:56)
[2017-07-09] MEDS ORDERED: PATIENTS OWN MEDICATION (simvastatin 20 MG) PO SCH (22:00)
[2017-07-09] MEDS: cefTRIAXone 1GM/10ml IVPUSH 10 ML IV SCH (22:04)
[2017-07-09] MEDS: ATORVASTATIN 20 MG TAB PO SCH (22:11)
[2017-07-09] MEDS: CARVEDILOL 3.125 MG TAB PO SCH (22:11)
[2017-07-10] MEDS: ACCU-CHEK COMFORT CURVE STRIP VI SCH ×6 (00:12→21:45)
[2017-07-10] MEDS: DEXTROSE 10% 1,000 ML IV SCH ×2 (00:12→10:58)
[2017-07-10] MEDS: InsuLIN REG 1unit/0.01ml Soln (100units/ml) SC SCH ×6 (03:41→20:00)
[2017-07-10 05:20] LABS: Basophils # (auto) 0 uL; Basophils % (auto) 0.4 % (0.0-2.0); Eosinophils # (auto) 0.2 uL; Eosinophils % (auto) 3.2 % (0.0-7.0); Hematocrit 26.6 % (36.0-46.0); Hemoglobin 8.9 g/dL (12.2-16.2); Lymphocytes # (auto) 1.3 uL; Lymphocytes % (auto) 21.8 % (10.0-50.0); Mean Corpuscular Hemoglobin 29.1 pg (28.0-32.0); Mean Corpuscular Hgb Conc. 33.4 g/dL (32.0-36.0); Mean Corpuscular Volume 86.9 fL (80.0-100.0); Monocytes # (auto) 0.9 uL; Monocytes % (auto) 14.2 % (0.0-12.0); Neutrophils # (auto) 3.7 uL; Neutrophils % (auto) 60.4 % (37.0-80.0); Nucleated Red Blood Cells % 0.1 %; Platelet Count (auto) 209 10^3/uL (140-450); Red Blood Cells 3.06 10^6/uL (4.0-5.20); Red Cell Distribution Width 17.2 % (11.8-14.3); White Blood Cell 6.1 10^3/uL (4.4-10.8)
[2017-07-10] MEDS: CLINDAMYCIN 600MG IV 50 ML IV SCH ×3 (06:03→21:33)
[2017-07-10 06:06] LABS: Albumin 2.6 g/dL (3.4-5.0); BUN/Creatinine Ratio 37.2; Bilirubin, Total 0.4 mg/dL (0.2-1.0); Magnesium 2.2 mg/dL (1.6-2.6); Phosphorus 4.2 mg/dL (2.5-4.90); Potassium 5.1 mmol/L (3.5-5.1); Uric Acid 5.1 mg/dL (2.6-6.0)
[2017-07-10] MEDS: IPRATROPIUM BROM 0.5 MG/2.5ML INH SOL NEB PRN ×2 (06:53→13:41)
[2017-07-10] MEDS ORDERED: predniSONE 5 MG TAB PO SCH (10:00)
[2017-07-10] MEDS: CARVEDILOL 3.125 MG TAB PO SCH ×2 (10:56→21:34)
[2017-07-10] MEDS: ISOSORBIDE MONONITRATE 60 MG TAB PO SCH (10:56)
[2017-07-10] MEDS: ASPirin 81 mg TAB PO SCH (10:56)
[2017-07-10] MEDS: PANTOPRAZOLE 40 MG TAB PO SCH (10:57)
[2017-07-10] MEDS: ENOXAPARIN SOD 30 MG/0.3 ML SYRINGE SC SCH (10:57)
[2017-07-10] MEDS ORDERED: DEXTROSE 10% 1,000 ML IV SCH (11:30)
[2017-07-10] MEDS: HYDROcodone-ACET 5/325MG TAB PO PRN ×2 (12:39→22:28)
[2017-07-10] MEDS ORDERED: DEXTROSE (50%) 50ML SYRG IV PRN (15:15)
[2017-07-10] MEDS ORDERED: methylPREDNISolone SOD SUCC 40 MG/ML VL IV ONE (15:30)
[2017-07-10 16:23] VITALS: BP_SYST 101; BP_SYST 115; BP_DIAS 62; BP_DIAS 78
[2017-07-10 16:59] VITALS: BP 115/42
[2017-07-10 21:29] VITALS: BP 113/44
[2017-07-10] MEDS: cefTRIAXone 1GM/10ml IVPUSH 10 ML IV SCH (21:33)
[2017-07-10] MEDS: ATORVASTATIN 20 MG TAB PO SCH (21:34)
[2017-07-10] MEDS: methylPREDNISolone SOD SUCC 40 MG/ML VL IV SCH (21:35)
[2017-07-10] MEDS: TEMAZEPAM 15 MG CAP PO PRN (22:49)
[2017-07-11] MEDS: ACCU-CHEK COMFORT CURVE STRIP VI SCH ×6 (02:00→21:45)
[2017-07-11] MEDS: InsuLIN REG 1unit/0.01ml Soln (100units/ml) SC SCH ×6 (03:48→20:34)
[2017-07-11 05:00] VITALS: BP 157/63
[2017-07-11] MEDS: CLINDAMYCIN 600MG IV 50 ML IV SCH (05:28)
[2017-07-11 07:27] LABS: Hematocrit 23.5 % (36.0-46.0)
[2017-07-11 07:56] LABS: BUN/Creatinine Ratio 43.7; Calcium 8.6 mg/dL (8.5-10.1); Potassium 5.2 mmol/L (3.5-5.1)
[2017-07-11 08:24] VITALS: BP 116/43
[2017-07-11] MEDS: methylPREDNISolone SOD SUCC 40 MG/ML VL IV SCH ×2 (09:13→21:44)
[2017-07-11] MEDS: ENOXAPARIN SOD 30 MG/0.3 ML SYRINGE SC SCH (09:14)
[2017-07-11] MEDS: ASPirin 81 mg TAB PO SCH (09:17)
[2017-07-11] MEDS: CARVEDILOL 3.125 MG TAB PO SCH ×2 (09:17→21:48)
[2017-07-11] MEDS: PANTOPRAZOLE 40 MG TAB PO SCH (09:17)
[2017-07-11] MEDS: ISOSORBIDE MONONITRATE 60 MG TAB PO SCH (09:18)
[2017-07-11] MEDS ORDERED: FLORASTOR (S. BOULARDII) 250 MG CAP PO ONE (10:38)
[2017-07-11] MEDS: HYDROcodone-ACET 5/325MG TAB PO PRN ×2 (10:42→22:50)
[2017-07-11] MEDS ORDERED: PRAMIPEXOLE DIHYDROCHLORIDE MO 0.25 MG TAB PO ONE (10:45)
[2017-07-11 12:53] VITALS: BP 97/36
[2017-07-11] MEDS ORDERED: MORPHINE SULFATE 4 MG/ML SYR/VIAL IV ONE (13:00)
[2017-07-11] MEDS: PRAMIPEXOLE DIHYDROCHLORIDE MO 0.25 MG TAB PO SCH ×2 (14:31→21:45)
[2017-07-11] MEDS: CLINDAMYCIN 300MG IV 50 ML IV SCH ×2 (14:32→21:44)
[2017-07-11 17:44] VITALS: BP 116/43
[2017-07-11] MEDS: cefTRIAXone 1GM/10ml IVPUSH 10 ML IV SCH (21:44)
[2017-07-11] MEDS: ATORVASTATIN 20 MG TAB PO SCH (21:44)
[2017-07-11 22:00] VITALS: BP 101/56
[2017-07-11] MEDS ORDERED: PRAMIPEXOLE DIHYDROCHLORIDE MO 0.25 MG TAB PO SCH (22:00)
[2017-07-11] MEDS: IPRATROPIUM BROM 0.5 MG/2.5ML INH SOL NEB PRN (22:43)
[2017-07-11] MEDS: LEVALBUTEROL HYDROCHLORIDE 0.63 MG/3 ML NEB SOLN NEB PRN (22:43)
[2017-07-12] VITALS (7 sets, daily range): BP systolic 123–161; BP diastolic 43–89
[2017-07-12] MEDS: InsuLIN REG 1unit/0.01ml Soln (100units/ml) SC SCH ×5 (00:13→22:24)
[2017-07-12] MEDS: TEMAZEPAM 15 MG CAP PO PRN ×2 (00:18→22:09)
[2017-07-12] MEDS: ACCU-CHEK COMFORT CURVE STRIP VI SCH ×4 (02:11→22:17)
[2017-07-12] MEDS: CLINDAMYCIN 300MG IV 50 ML IV SCH (05:58)
[2017-07-12] MEDS: PRAMIPEXOLE DIHYDROCHLORIDE MO 0.25 MG TAB PO SCH ×3 (05:58→22:09)
[2017-07-12] MEDS: IPRATROPIUM BROM 0.5 MG/2.5ML INH SOL NEB PRN ×2 (06:45→19:41)
[2017-07-12 07:15] LABS: Hematocrit 23.6 % (36.0-46.0)
[2017-07-12 07:32] LABS: BUN/Creatinine Ratio 46.1; Calcium 8.4 mg/dL (8.5-10.1)
[2017-07-12] MEDS: LEVALBUTEROL HYDROCHLORIDE 0.63 MG/3 ML NEB SOLN NEB PRN ×2 (10:00→19:42)
[2017-07-12] MEDS ORDERED: FLORASTOR (S. BOULARDII) 250 MG CAP PO SCH (10:00)
[2017-07-12] MEDS: methylPREDNISolone SOD SUCC 40 MG/ML VL IV SCH ×2 (10:00→22:08)
[2017-07-12] MEDS: PANTOPRAZOLE 40 MG TAB PO SCH (10:44)
[2017-07-12] MEDS: ASPirin 81 mg TAB PO SCH (10:45)
[2017-07-12] MEDS: CARVEDILOL 3.125 MG TAB PO SCH ×2 (10:45→22:08)
[2017-07-12] MEDS: ISOSORBIDE MONONITRATE 60 MG TAB PO SCH (10:46)
[2017-07-12] MEDS: ENOXAPARIN SOD 30 MG/0.3 ML SYRINGE SC SCH (10:47)
[2017-07-12] MEDS ORDERED: DEXTROSE (50%) 50ML SYRG IV PRN (12:30)
[2017-07-12] MEDS ORDERED: ALBUTEROL SULF 2.5 MG/0.5ML(0.5%) NEB SOLN NEB PRN (12:30)
[2017-07-12] MEDS: CLINDAMYCIN HCL 150 MG CAP PO SCH ×2 (16:00→22:08)
[2017-07-12] MEDS: DEXTROSE 10% 1,000 ML IV SCH ×2 (16:01→23:16)
[2017-07-12] MEDS: HYDROcodone-ACET 5/325MG TAB PO PRN (20:05)
[2017-07-12] MEDS: ATORVASTATIN 20 MG TAB PO SCH (22:08)
[2017-07-13 05:00] VITALS: BP 155/69
[2017-07-13] MEDS: CLINDAMYCIN HCL 150 MG CAP PO SCH (05:45)
[2017-07-13] MEDS: PRAMIPEXOLE DIHYDROCHLORIDE MO 0.25 MG TAB PO SCH (05:45)
[2017-07-13] MEDS: InsuLIN REG 1unit/0.01ml Soln (100units/ml) SC SCH (05:52)
[2017-07-13] MEDS: ACCU-CHEK COMFORT CURVE STRIP VI SCH (05:53)
[2017-07-13] MEDS: IPRATROPIUM BROM 0.5 MG/2.5ML INH SOL NEB PRN (08:35)
[2017-07-13 09:00] VITALS: BP 156/54
[2017-07-13 13:00] VITALS: BP 149/58
[2017-07-13] MEDS: HYDROcodone-ACET 5/325MG TAB PO PRN (13:55)
[2017-07-13] MEDS: MORPHINE SULFATE 4 MG/ML SYR/VIAL IV PRN ×2 (14:41→22:46)
[2017-07-13 16:21] VITALS: BP 153/66
[2017-07-13 22:49] VITALS: BP 143/57
[2017-07-14] MEDS: MORPHINE SULFATE 4 MG/ML SYR/VIAL IV PRN ×4 (01:10→18:32)
[2017-07-14] MEDS: LORazepam 2MG/ML-1ML VIAL IV PRN ×2 (02:22→16:09)
[2017-07-14 05:34] VITALS: BP 165/71
[2017-07-14 07:27] LABS: Albumin 2.5 g/dL (3.4-5.0); Calcium 8.9 mg/dL (8.5-10.1); Potassium 5.1 mmol/L (3.5-5.1)
[2017-07-14 07:30] VITALS: BP 112/57
[2017-07-14 07:30] LABS: BUN/Creatinine Ratio 45.8
[2017-07-14 07:33] LABS: Bilirubin, Total 0.3 mg/dL (0.2-1.0); Phosphorus 2.4 mg/dL (2.5-4.90); Total Protein 5.7 g/dL (6.4-8.2)
[2017-07-14 08:53] VITALS: BP 112/47
[2017-07-14 12:54] VITALS: BP 148/71
[2017-07-14 16:48] VITALS: BP 157/64
[2017-07-14 17:58] VITALS: BP 144/57
== END 2017-07-14 18:30 | disposition hospice, home (50) | DRG 682 ==
LOC: ER 16:45 → EDBD 16:45 → TELE 16:46 → TELE-EAST 07-10 16:26 → EAST 07-12 17:39
PROVIDERS: ADMIT Nurse Practitioner; ATTEND Internal Medicine
PROC: 30233N1 Transfusion of Nonautologous Red Blood Cells into Peripheral Vein, Percutaneous Approach (ICD-10-PCS; principal; 2017-07-09)
DX: N17.0 Acute kidney failure with tubular necrosis (principal); I21.A1 Myocardial infarction type 2; J96.21 Acute and chronic respiratory failure with hypoxia; E44.0 Moderate protein-calorie malnutrition; L03.115 Cellulitis of right lower limb; I27.20 Pulmonary hypertension, unspecified; E11.22 Type 2 diabetes mellitus with diabetic chronic kidney disease; L03.116 Cellulitis of left lower limb; I13.0 Hypertensive heart and chronic kidney disease with heart failure and stage 1 through stage 4 chronic kidney disease, or unspecified chronic kidney disease; I50.32 Chronic diastolic (congestive) heart failure; J44.1 Chronic obstructive pulmonary disease with (acute) exacerbation; J98.11 Atelectasis; E11.649 Type 2 diabetes mellitus with hypoglycemia without coma; D63.8 Anemia in other chronic diseases classified elsewhere; Z68.29 Body mass index [BMI] 29.0-29.9, adult; E78.5 Hyperlipidemia, unspecified; G25.81 Restless legs syndrome; I25.10 Atherosclerotic heart disease of native coronary artery without angina pectoris; I70.0 Atherosclerosis of aorta; I87.2 Venous insufficiency (chronic) (peripheral); N18.3 Chronic kidney disease, stage 3 (moderate); Z51.5 Encounter for palliative care; Z66 Do not resuscitate; M19.90 Unspecified osteoarthritis, unspecified site; Z83.3 Family history of diabetes mellitus; Z82.49 Family history of ischemic heart disease and other diseases of the circulatory system; Z99.81 Dependence on supplemental oxygen; Z88.6 Allergy status to analgesic agent; Z79.899 Other long term (current) drug therapy; Z79.84 Long term (current) use of oral hypoglycemic drugs; Z90.49 Acquired absence of other specified parts of digestive tract
CPT/HCPCS: 36415; 36430; 51702; 71045; 76775; 80048; 80053; 81001; 82270; 82570; 82962; 83036; 83540; 83550; 83605; 83735; 83880; 84100; 84156; 84300; 84443; 84484; 84550; 85014; 85018; 85025; 86850; 86900; 86901; 86920; 87040; 87081; 93005; 94640; 96365; 96372; 96375; 96376; 97163; J1815; J2405; J3490